=== PATIENT | male | born 1955 | race Caucasian/White ===

== ENCOUNTER 2024-09-23 14:34 | Emergency (ER) | payer MEDICARE ==
[~2024-09-23] VITALS: Ht 167.6 cm; Wt 88.5 kg
[2024-09-23] MEDS ORDERED: ONDANSETRON HCL/PF 4 MG/2 ML VIAL ONE ×2 (15:23→17:09)
[2024-09-23] MEDS ORDERED: MORPHINE SULFATE INJ 4 MG/ML DISP.SYRIN ONE (15:24)
[2024-09-23 15:28] LABS: BASOPHILS % (AUTO) 0.3 % (0.0-2.0); EOSINOPHILS % (AUTO) 0.1 % (0.0-6.0); HEMATOCRIT 48 % (39-51); HEMOGLOBIN 16.2 g/dL (13.5-17.5); LYMPHOCYTES % (AUTO) 8.2 % (20.0-44.0); MEAN CORPUSCULAR HEMOGLOBIN 30 PG (26.0-33.0); MEAN CORPUSCULAR HGB CONC 34 g/dl (31.0-36.0); MEAN CORPUSCULAR VOLUME 90 fL (80-96); MONOCYTES # (AUTO) 0.6 K/uL (0.1-1.30); MONOCYTES % (AUTO) 4.9 % (2.0-12.0); NEUTROPHILS # (AUTO) 10.1 K/uL (1.8-8.9); NEUTROPHILS % (AUTO) 86.5 % (43.0-81.0); PLATELET COUNT (AUTO) 240 K/uL (150-450); RED BLOOD CELL COUNT(AUTO) 5.34 MIL/uL (4.5-6.0); RED CELL DISTRIBUTION WIDTH 13.6 % (11.5-15.0); WHITE BLOOD COUNT (AUTO) 11.7 K/uL (4.3-11.0)
[2024-09-23] MEDS: IV NS 0.9% 1,000 ML BAG IV ONE (15:30)
[2024-09-23] MEDS: ONDANSETRON HCL/PF 4 MG/2 ML VIAL IVP ONE (15:31)
[2024-09-23] MEDS: MORPHINE SULFATE INJ 2 MG/ML DISP.SYRIN IV ONE (15:31)
[2024-09-23 15:40] LABS: APPEARANCE,URINE CLEAR (CLEAR); BILIRUBIN,URINE NEGATIVE (NEGATIVE); BLOOD, URINE 3+ Ery/uL (NEGATIVE); COLOR,URINE YELLOW (YELLOW); KETONES,URINE 1+ mg/dL (NEGATIVE); LEUKOCYTE ESTERASE ,URINE NEGATIVE (NEGATIVE); NITRITE, URINE NEGATIVE (NEGATIVE); PROTEIN,URINE NEGATIVE (NEGATIVE); UGLUCOSE NEGATIVE (NEGATIVE); UROBILINOGEN,URINE 0.2 EU/dL (0.2)
[2024-09-23 15:42] LABS: ALANINE AMINOTRANSFERASE 38 U/L (12-78); ALBUMIN 4.1 g/dL (3.4-5.0); ALKALINE PHOSPHATASE 85 U/L (46-116); ASPARTATE AMINOTRANSFERASE 23 U/L (15-37); BILIRUBIN,DIRECT 0.2 mg/dL (0.0-0.2); BILIRUBIN,TOTAL 1.2 mg/dL (0.2-1.0); CALCIUM, SERUM 9.3 mg/dL (8.5-10.1); CARBON DIOXIDE 25 mmol/L (21-32); CHLORIDE 104 mmol/L (98-107); CREATININE 1.6 mg/dL (0.6-1.3); GLUCOSE 103 mg/dL (74-106); LIPASE 34 U/L (16-77); POTASSIUM 3.8 mmol/L (3.5-5.1); SODIUM SERUM 140 mmol/L (136-145); TOTAL PROTEIN, SERUM 7.1 g/dL (6.4-8.2); UREA NITROGEN, BLOOD 17 mg/dL (7-18)
[2024-09-23 15:50] LABS: INR 0.97 (0.91-1.10); PARTIAL THROMBOPLASTIN TIME 26.5 SEC (24.3-34.3); PROTHROMBIN TIME 10.3 SECS (9.2-11.1)
[2024-09-23 16:44] LABS: ADD URINE CULTURE NO; BACTERIA,URINE Few /HPF (None Seen); SQUAMOUS EPITHELIAL CELL,UR Few /HPF (None Seen); WBC,URINE 0-2 /HPF (0-3)
[2024-09-23] MEDS: ONDANSETRON HCL/PF 4 MG/2 ML VIAL IV ONE (17:13)
[2024-09-23] MEDS ORDERED: IBUP-1955 PO (19:50)
[2024-09-23] MEDS ORDERED: TAMS-12 PO (19:50)
[2024-09-23] MEDS ORDERED: ONDA4TAB5 PO (19:50)
[2024-09-23] MEDS ORDERED: OXYC-128 PO (19:50)
[2024-09-23] MEDS ORDERED: KETOROLAC TROMETHAMINE 15 MG/ML VIAL ONE (19:59)
[2024-09-23] MEDS: KETOROLAC TROMETHAMINE 15 MG/ML VIAL IV ONE (20:07)
[2024-09-23 20:13] VITALS: BP 145/87; TEMP 98.2; O2SAT 99
== END 2024-09-23 20:14 | disposition home or self-care (01) ==
LOC: ER 14:38
DX: N13.2 Hydronephrosis with renal and ureteral calculous obstruction (principal); E78.5 Hyperlipidemia, unspecified; Z79.899 Other long term (current) drug therapy
CPT/HCPCS: 99285; 74176; 96374; 96375; 71045; 96361; 93005; 96376; 85025; 80048; 83690; 80076; 81001; 36415; 84484 ×2; 85730; J1885; J2270; J2405 ×2; J7030

== ENCOUNTER 2024-11-25 09:54 | Inpatient (IN) | payer BC, MEDICARE ==
[~2024-11-25] VITALS: Ht 167.6 cm; Wt 91.6 kg
[~2024-11-25 09:54] MED LIST: IBUP-1955 PO; ONDA4TAB5 PO; OXYC-128 PO; TAMS-12 PO
[2024-11-25] MEDS ORDERED: IV NS 0.9% 250 ML IV ONE (10:09)
[2024-11-25] MEDS ORDERED: CT SWABBABLE VALVE TRANS SET 1 EA INFUS.SET MC ONE (10:09)
[2024-11-25] MEDS ORDERED: IOHEXOL-350 100 ML VIAL IV ONE (10:09)
[2024-11-25 10:20] LABS: BASOPHILS # (AUTO) 0.1 K/uL (0.0-0.2); BASOPHILS % (AUTO) 1.7 % (0.0-2.0); EOSINOPHILS # (AUTO) 0.1 K/uL (0.0-0.7); EOSINOPHILS % (AUTO) 2.6 % (0.0-6.0); HEMATOCRIT 47 % (39-51); LYMPHOCYTES # (AUTO) 1.6 K/uL (0.8-4.8); LYMPHOCYTES % (AUTO) 28.5 % (20.0-44.0); MEAN CORPUSCULAR HEMOGLOBIN 31 PG (26.0-33.0); MEAN CORPUSCULAR HGB CONC 34 g/dl (31.0-36.0); MEAN CORPUSCULAR VOLUME 90 fL (80-96); MONOCYTES # (AUTO) 0.5 K/uL (0.1-1.30); MONOCYTES % (AUTO) 8.3 % (2.0-12.0); NEUTROPHILS # (AUTO) 3.4 K/uL (1.8-8.9); NEUTROPHILS % (AUTO) 58.9 % (43.0-81.0); PLATELET COUNT (AUTO) 228 K/uL (150-450); RED BLOOD CELL COUNT(AUTO) 5.23 MIL/uL (4.5-6.0); RED CELL DISTRIBUTION WIDTH 13.8 % (11.5-15.0); WHITE BLOOD COUNT (AUTO) 5.7 K/uL (4.3-11.0)
[2024-11-25 10:25] LABS: CALCIUM, SERUM 9.6 mg/dL (8.5-10.1); CARBON DIOXIDE 30 mmol/L (21-32); CHLORIDE 108 mmol/L (98-107); CREATININE 1.2 mg/dL (0.6-1.3); GLUCOSE 93 mg/dL (74-106); POTASSIUM 4.8 mmol/L (3.5-5.1); SODIUM SERUM 145 mmol/L (136-145); UREA NITROGEN, BLOOD 10 mg/dL (7-18)
[2024-11-25 10:31] LABS: INR 0.95 (0.91-1.10); PARTIAL THROMBOPLASTIN TIME 25.4 SEC (24.3-34.3); PROTHROMBIN TIME 10.1 SECS (9.2-11.1)
[2024-11-25] MEDS ORDERED: TAMS-12 PO (11:00)
[2024-11-25] MEDS ORDERED: FAMO40TA70 PO (11:00)
[2024-11-25] MEDS ORDERED: LEQVIO SQ (11:00)
[2024-11-25] MEDS ORDERED: ALPR0.5T8 PO (11:00)
[2024-11-25] MEDS ORDERED: ALBU8.5H8 IH (11:00)
[2024-11-25] MEDS ORDERED: MAG HYDROX/AL HYDROX/SIMETH 30 ML UDC PO PRN (11:30)
[2024-11-25] MEDS: ASPIRIN EC 325 MG TABLET.DR PO ONE (11:30)
[2024-11-25] MEDS ORDERED: ONDANSETRON HCL/PF 4 MG/2 ML VIAL IVP PRN (11:30)
[2024-11-25 11:33] LABS: APPEARANCE,URINE CLEAR (CLEAR); BILIRUBIN,URINE NEGATIVE (NEGATIVE); BLOOD, URINE NEGATIVE Ery/uL (NEGATIVE); COLOR,URINE YELLOW (YELLOW); KETONES,URINE NEGATIVE (NEGATIVE); LEUKOCYTE ESTERASE ,URINE NEGATIVE (NEGATIVE); NITRITE, URINE NEGATIVE (NEGATIVE); PH,URINE 7.5 (5.0-8.0); PROTEIN,URINE NEGATIVE (NEGATIVE); UGLUCOSE NEGATIVE (NEGATIVE); UROBILINOGEN,URINE 0.2 EU/dL (0.2)
[2024-11-25] MEDS ORDERED: ASPIRIN EC 325 MG TABLET.DR PO ONE (12:33)
[2024-11-25] MEDS ORDERED: FAMOTIDINE (20 MG) 20 MG TABLET PO PRN (13:30)
[2024-11-25] MEDS ORDERED: ALPRAZOLAM 0.5 MG TABLET PO PRN (13:30)
[2024-11-25 14:00] VITALS: BP 155/75; TEMP 98.2; O2SAT 99
[2024-11-25] MEDS ORDERED: ALBUTEROL FS 2.5 MG/3 ML VIAL.NEB NEB PRN (14:00)
[2024-11-25 15:50] LABS: THYROID STIMULATING HORMONE 2.27 uIU/mL (0.358-3.74)
[2024-11-25 16:00] VITALS: BP 157/83; TEMP 98.1; O2SAT 98
[2024-11-25 20:38] VITALS: BP 139/87; TEMP 98.1; O2SAT 98
[2024-11-25] MEDS ORDERED: TEMAZEPAM 15 MG CAPSULE PO PRN (21:00)
[2024-11-25] MEDS: TAMSULOSIN 0.4 MG CAP.SR.24H PO SCH (21:01)
[2024-11-25] MEDS: ACETAMINOPHEN 325 MG TABLET PO PRN (21:06)
[2024-11-26 00:10] VITALS: BP 138/83; TEMP 98.1; O2SAT 99
[2024-11-26 04:49] VITALS: BP 132/75; TEMP 97.5; O2SAT 96
[2024-11-26 07:30] VITALS: BP_SYST 131; BP_SYST 150; BP_DIAS 55; BP_DIAS 87; TEMP 98.1; O2SAT 93; O2SAT 96
[2024-11-26 07:56] LABS: BASOPHILS % (AUTO) 0.4 % (0.0-2.0); EOSINOPHILS # (AUTO) 0.2 K/uL (0.0-0.7); EOSINOPHILS % (AUTO) 3.5 % (0.0-6.0); HEMATOCRIT 44 % (39-51); HEMOGLOBIN 14.9 g/dL (13.5-17.5); LYMPHOCYTES # (AUTO) 1.5 K/uL (0.8-4.8); LYMPHOCYTES % (AUTO) 30.3 % (20.0-44.0); MEAN CORPUSCULAR HEMOGLOBIN 31 PG (26.0-33.0); MEAN CORPUSCULAR HGB CONC 34 g/dl (31.0-36.0); MEAN CORPUSCULAR VOLUME 90 fL (80-96); MONOCYTES # (AUTO) 0.4 K/uL (0.1-1.30); MONOCYTES % (AUTO) 7.3 % (2.0-12.0); NEUTROPHILS % (AUTO) 58.5 % (43.0-81.0); PLATELET COUNT (AUTO) 204 K/uL (150-450); RED BLOOD CELL COUNT(AUTO) 4.89 MIL/uL (4.5-6.0); RED CELL DISTRIBUTION WIDTH 13.9 % (11.5-15.0); WHITE BLOOD COUNT (AUTO) 5.1 K/uL (4.3-11.0)
[2024-11-26 08:04] LABS: CALCIUM, SERUM 8.6 mg/dL (8.5-10.1); CREATININE 1.1 mg/dL (0.6-1.3); PHOSPHORUS 2.6 mg/dL (2.5-4.9)
[2024-11-26 08:23] LABS: THYROID STIMULATING HORMONE 3.99 uIU/mL (0.358-3.74)
[2024-11-26] MEDS ORDERED: ASPI-1169 PO (10:56)
[2024-11-26 12:10] LABS: FOLIC ACID 6.9 ng/mL (>3.0)
[2024-11-29 12:07] LABS: VITAMIN B1 THIAMINE,WB 107.7 nmol/L (66.5-200.0)
== END 2024-11-26 12:15 | disposition home or self-care (01) | DRG 69 ==
LOC: ER 09:58 → TELE 13:13
PROVIDERS: ADMIT Nurse Practitioner Acute Care; ATTEND Nurse Practitioner Acute Care
DX: G45.9 Transient cerebral ischemic attack, unspecified (principal); R29.701 NIHSS score 1; I10 Essential (primary) hypertension; Z79.51 Long term (current) use of inhaled steroids; Z79.899 Other long term (current) drug therapy; Z79.02 Long term (current) use of antithrombotics/antiplatelets; Z79.82 Long term (current) use of aspirin; Z87.442 Personal history of urinary calculi; Z91.199 Patient's noncompliance with other medical treatment and regimen due to unspecified reason; M54.12 Radiculopathy, cervical region; Z82.3 Family history of stroke
CPT/HCPCS: 36415; 70450-TC; 70496-TC; 70498-TC; 71045-TC; 80048-TC; 80061-TC; 82607-TC; 82962-TC; 83735-TC; 83921; 84100-TC; 84425; 84443-TC; 84484-TC; 85025-TC; 85730-TC; 93307-TC; 97112-TC; 97116-TC; 97530-TC; G0378; J7050; Q9967